=== PATIENT | male | born 1940 | race Caucasian/White ===

== ENCOUNTER 2018-12-23 12:05 | Outpatient (CLI) | payer MEDICARE, OTHER ==
--- NOTE | 2018-12-23 14:38 | CT ---
CT ANGIO ABDOMEN AND PELVIS WITH INTRAVENOUS CONTRAST ENHANCEMENT WITH 3D RECONSTRUCTIONS: HISTORY: Abdominal aortic aneurysm. Abnormal CT at [facility]. COMPARISON: None available. FINDINGS: There is linear scarring seen in the lung bases. No pulmonary nodules are identified. The liver, sp bobby and pancreas regions appear unremarkable. The gallbladder has been removed. The right and left adrenal glands are normal. The right and left kidneys are normal in size. There appear to be some small parapelvic cysts on the left. No significant periaortic or mesenteric adenop athy. The angiographic portion of the study yielded a good examination. There is no significant narrowing of the celiac or superior mesenteric arteries. There are single renal arteries bilaterally without s ignificant stenosis. There is an infrarenal aortic aneurysm. It measures approximately 3.9 cm. At the level of the bifurcation, the aorta has tapered to a caliber of 2.4 cm and the common iliac arter ies are in the 13 mm range. No dissection. There is a patent ARRON present. Sigmoid diverticulosis is noted. No pelvic lymphadenopathy or mass. IMPRESSION: Approximately 3.9 cm infrarenal abdominal aortic aneurysm, as discussed above. POS: OFF
== END 2018-12-23 12:06 | disposition home or self-care (01) ==
LOC: CT 12:05
PROVIDERS: ATTEND Thoracic Surgery (Cardiothoracic Vascular Surgery)
DX: I71.4 Abdominal aortic aneurysm, without rupture (principal)
CPT/HCPCS: 74174; 82565